=== PATIENT | female | born 1955 | race Caucasian/White ===

== ENCOUNTER → 2016-08-16 | Outpatient (REF) | payer OTHER ==
[2016-08-16 12:11] LABS: ALBUMIN 3.6 GM/DL (3.2-5.2); ALBUMIN/GLOBULIN RATIO 0.88 (1.00-1.93); ALKALINE PHOSPHATASE 80 U/L (45-117); ALT/SGPT 32 U/L (12-78); ANION GAP 5 MEQ/L (8-16); AST/SGOT 17 U/L (15-37); BILIRUBIN,TOTAL 0.8 MG/DL (0.2-1.0); BLOOD UREA NITROGEN 16 MG/DL (7-18); CALCIUM LEVEL 9.7 MG/DL (8.8-10.2); CARBON DIOXIDE LEVEL 31 MEQ/L (21-32); CHLORIDE LEVEL 104 MEQ/L (98-107); CREATININE FOR GFR 0.73 MG/DL (0.55-1.02); GLOMERULAR FILTRATION RATE > 60.0 (>45); GLUCOSE, FASTING 87 MG/DL (80-110); POTASSIUM SERUM 4.3 MEQ/L (3.5-5.1); SODIUM LEVEL 140 MEQ/L (136-145); TOTAL PROTEIN 7.7 GM/DL (6.4-8.2)
== END ==
LOC: M SFHCPLAZ 08:53
PROVIDERS: ATTEND Nurse Practitioner Family
DX: I10 Essential (primary) hypertension (principal); E55.9 Vitamin D deficiency, unspecified

== ENCOUNTER → 2016-08-29 | Outpatient (CLI) | payer OTHER ==
--- NOTE | 2016-08-29 13:51 | REP ---
PA and lateral chest: A comparison is 09/12/2010. The lung granado are clear. The cardiac size is normal The lucrecia, mediastinum, and bony thorax are unremarkable. Impression: Negative PA and lateral chest. There is no significant interval change. Signed by Dariel Francisco MD 08/29/2016 01:43 P
== END ==
LOC: M SMT 10:57
PROVIDERS: ATTEND Nurse Practitioner Family
DX: R06.02 Shortness of breath (principal); I10 Essential (primary) hypertension

== ENCOUNTER → 2017-01-15 | Outpatient (REF) | payer OTHER ==
[2017-01-15 11:46] LABS: MEAN CORPUSCULAR HEMOGLOBIN 30.9 pg (27.0-33.0); MEAN CORPUSCULAR HGB CONC 33.2 g/dl (32.0-36.5); RED CELL DISTRIBUTION WIDTH 12.9 % (11.5-14.5); WHITE BLOOD COUNT 7.9 K/mm3 (4.0-10.0)
[2017-01-15 12:09] LABS: ALBUMIN 3.3 GM/DL (3.2-5.2); ALBUMIN/GLOBULIN RATIO 0.83 (1.00-1.93); ALKALINE PHOSPHATASE 73 U/L (45-117); ALT/SGPT 38 U/L (12-78); ANION GAP 9 MEQ/L (8-16); AST/SGOT 16 U/L (15-37); BILIRUBIN,TOTAL 0.7 MG/DL (0.2-1.0); BLOOD UREA NITROGEN 11 MG/DL (7-18); CALCIUM LEVEL 8.7 MG/DL (8.8-10.2); CARBON DIOXIDE LEVEL 27 MEQ/L (21-32); CHLORIDE LEVEL 107 MEQ/L (98-107); CHOLESTEROL LEVEL 193 MG/DL (<200); CREATININE FOR GFR 0.72 MG/DL (0.55-1.02); GLOMERULAR FILTRATION RATE > 60.0 (>45); GLUCOSE, FASTING 91 MG/DL (80-110); POTASSIUM SERUM 4.1 MEQ/L (3.5-5.1); SODIUM LEVEL 143 MEQ/L (136-145); TOTAL PROTEIN 7.3 GM/DL (6.4-8.2); TRIGLYCERIDES LEVEL 121 MG/DL (<150)
== END ==
LOC: M LABDRAW1 09:40
PROVIDERS: ATTEND Nurse Practitioner Family
DX: M17.0 Bilateral primary osteoarthritis of knee (principal); I10 Essential (primary) hypertension; E78.2 Mixed hyperlipidemia; E55.9 Vitamin D deficiency, unspecified

== ENCOUNTER → 2017-02-01 | Outpatient (CLI) | payer OTHER ==
--- NOTE | 2017-02-01 08:54 | REPMRS ---
Patient History The patient states she had a clinical breast exam in 02/03 Patient is postmenopausal. Family history of colorectal cancer in sister at age 50 or over and prostate cancer in brother at age 50 or over. Digital Woman Screen Mammo: February 01, 2017 - Exam #: [id number] Bilateral CC and MLO view(s) were taken. Technologist: Sandra Bridges, Technologist Prior study comparison: January 03, 2016, digital woman screen mammo performed at [facility]. October 21, 2014, digital woman screen mammo performed at [facility]. October 28, 2013, digital woman screen mammo performed at [facility]. FINDINGS: There are scattered fibroglandular densities. There has been no change in the appearance of the mammogram from the prior studies. There is a mild amount of scattered fibroglandular density which is fairly symmetric. There is no interval development of dominant mass, architectural distortion, or clustered microcalcification suggestive of malignancy. ASSESSMENT: BI-RADS/ACR category 1 mammogram. Negative. Recommendation Routine screening mammogram in 1 year (for women over age 40). This mammogram was interpreted with the aid of an FDA-approved computer-aided dectection system. Electronically Signed By: Joe Maurer MD 02/01/17 0853
== END ==
LOC: M WHC 08:15
PROVIDERS: ATTEND Nurse Practitioner Family
DX: Z12.31 Encounter for screening mammogram for malignant neoplasm of breast (principal); Z78.0 Asymptomatic menopausal state; Z80.0 Family history of malignant neoplasm of digestive organs

== ENCOUNTER → 2017-07-25 | Outpatient (REF) | payer OTHER ==
[2017-07-25 13:11] LABS: ANION GAP 8 MEQ/L (8-16); BLOOD UREA NITROGEN 14 MG/DL (7-18); CALCIUM LEVEL 9.2 MG/DL (8.8-10.2); CARBON DIOXIDE LEVEL 30 MEQ/L (21-32); CHLORIDE LEVEL 103 MEQ/L (98-107); CREATININE FOR GFR 0.74 MG/DL (0.55-1.30); GLOMERULAR FILTRATION RATE > 60.0 (>45); GLUCOSE, FASTING 89 MG/DL (70-100); POTASSIUM SERUM 3.9 MEQ/L (3.5-5.1); SODIUM LEVEL 141 MEQ/L (136-145)
== END ==
LOC: M SFHCPLAZ 08:16
DX: I10 Essential (primary) hypertension (principal)
CPT/HCPCS: 80048

== ENCOUNTER → 2017-12-31 | Outpatient (REF) | payer OTHER | LOC: M LAB REF 13:52 | DX: J02.9 Acute pharyngitis, unspecified (principal) ==

== ENCOUNTER → 2018-02-04 | Outpatient (REF) | payer OTHER ==
[2018-02-06 15:01] LABS: HPV HYBRID CAPTURE II Negative (Negative)
== END ==
LOC: M SFHCPLAZ 11:09
DX: Z12.4 Encounter for screening for malignant neoplasm of cervix (principal)

== ENCOUNTER → 2018-03-10 | Outpatient (CLI) | payer OTHER | LOC: M WHC 08:45 | DX: Z12.31 Encounter for screening mammogram for malignant neoplasm of breast (principal) | CPT/HCPCS: 77067 ==

== ENCOUNTER → 2018-03-31 | Outpatient (REF) | payer OTHER ==
[2018-03-31 17:52] LABS: HEMATOCRIT 42.2 % (36.0-47.0); HEMOGLOBIN 13.4 g/dl (12.0-15.5); MEAN CORPUSCULAR HEMOGLOBIN 29.8 pg (27.0-33.0); MEAN CORPUSCULAR HGB CONC 31.8 g/dl (32.0-36.5); MEAN CORPUSCULAR VOLUME 93.8 fl (80.0-96.0); PLATELET COUNT, AUTOMATED 300 10^3/uL (150-450); RED CELL DISTRIBUTION WIDTH 13.5 % (11.5-14.5); WHITE BLOOD COUNT 9.1 10^3/uL (4.0-10.0)
[2018-03-31 18:03] LABS: ALBUMIN 3.7 GM/DL (3.2-5.2); ALBUMIN/GLOBULIN RATIO 0.97 (1.00-1.93); ALKALINE PHOSPHATASE 77 U/L (45-117); ALT/SGPT 41 U/L (12-78); ANION GAP 7 MEQ/L (8-16); AST/SGOT 24 U/L (7-37); BILIRUBIN,TOTAL 0.8 MG/DL (0.2-1.0); BLOOD UREA NITROGEN 15 MG/DL (7-18); CALCIUM LEVEL 9.4 MG/DL (8.8-10.2); CARBON DIOXIDE LEVEL 30 MEQ/L (21-32); CHLORIDE LEVEL 102 MEQ/L (98-107); CHOLESTEROL LEVEL 211 MG/DL (<200); CHOLESTEROL RISK RATIO 3.907 (<5); CREATININE FOR GFR 0.73 MG/DL (0.55-1.30); GLOMERULAR FILTRATION RATE > 60.0 (>45); GLUCOSE, FASTING 91 MG/DL (70-100); HDL CHOLESTEROL 54 MG/DL (>40); LDL CHOLESTEROL 138 MG/DL (<100); NON-HDL-C 157 MG/DL; SODIUM LEVEL 139 MEQ/L (136-145); TOTAL PROTEIN 7.5 GM/DL (6.4-8.2); TRIGLYCERIDES LEVEL 95 MG/DL (<150)
[2018-03-31 18:11] LABS: TOTAL 25(OH) VITAMIN D 65.1 NG/ML (30.0-100.0)
[2018-03-31 19:38] LABS: ERYTHROCYTE SEDIMENTATION RATE 41 mm/hr (0-30)
== END ==
LOC: M SFHCADAM 11:21
DX: M17.0 Bilateral primary osteoarthritis of knee (principal); I10 Essential (primary) hypertension; E78.2 Mixed hyperlipidemia; E55.9 Vitamin D deficiency, unspecified

== ENCOUNTER → 2019-03-19 | Outpatient (REF) | payer OTHER ==
[2019-03-19 11:22] LABS: ALBUMIN 3.3 GM/DL (3.2-5.2); ALT/SGPT 30 U/L (12-78); BILIRUBIN,TOTAL 0.8 MG/DL (0.2-1.0); BLOOD UREA NITROGEN 14 MG/DL (7-18); CARBON DIOXIDE LEVEL 29 MEQ/L (21-32); CHLORIDE LEVEL 104 MEQ/L (98-107); CHOLESTEROL LEVEL 193 MG/DL (<200); CHOLESTEROL RISK RATIO 3.509 (<5); CREATININE FOR GFR 0.74 MG/DL (0.55-1.30); GLOMERULAR FILTRATION RATE > 60.0 (>45); GLUCOSE, FASTING 84 MG/DL (70-100); HDL CHOLESTEROL 55 MG/DL (>40); LDL CHOLESTEROL 115 MG/DL (<100); NON-HDL-C 138 MG/DL; POTASSIUM SERUM 4.1 MEQ/L (3.5-5.1); SODIUM LEVEL 140 MEQ/L (136-145); TRIGLYCERIDES LEVEL 115 MG/DL (<150)
[2019-03-19 11:27] LABS: TOTAL 25(OH) VITAMIN D 52.6 NG/ML (30.0-100.0)
[2019-03-19 11:46] LABS: MALB URINE SIEMENS 5.6 MG/L; MAU/CREAT RATIO 4.7 MCG/MG (0.0-30.0)
== END ==
LOC: M SFHCPLAZ 10:10
PROVIDERS: ATTEND Nurse Practitioner Family
DX: I10 Essential (primary) hypertension (principal); E78.2 Mixed hyperlipidemia; E55.9 Vitamin D deficiency, unspecified

== ENCOUNTER → 2019-04-07 | Outpatient (CLI) | payer OTHER ==
--- NOTE | 2019-04-07 09:56 | REP ---
BILATERAL MAMMOGRAM WITH 3D TOMOSYNTHESIS: [facility] lifetime risk of breast cancer 6.5%. MLO and CC views of both breast performed with 3D tomosynthesis. Comparison 03/10/2018 as well as other prior exams. Mild scattered fibroglandular tissue is again noted. There is no change on the right. On the left, there is a well-circumscribed 5 mm nodule in the posterolateral aspect of the left breast, which is not seen on prior studies. I see no other evidence of mass or clustered microcalcifications bilaterally. IMPRESSION: BIRADS 0: BI-RADS/ACR category 0 mammogram, Incomplete: Need additional imaging evaluation and/or prior mammograms for comparison. There appears to be a new well-circumscribed 5 mm nodule in the posterolateral left breast. Recommend spot compression views and ultrasound to further evaluate. This mammogram was interpreted with the aid of an FDA-approved computer-aided detection system. A. Negative x-ray reports should not delay biopsy if a dominant or clinically suspicious mass is present. B. Four to eight percent of cancers are not identified by x-ray. C. Adenosis and dense breasts may obscure an underlying neoplasm. The patient states she/he had a clinical breast exam in February 2019. The patient letter being requested is M0.
== END ==
LOC: M WHC 08:23
PROVIDERS: ATTEND Nurse Practitioner Family
DX: Z12.31 Encounter for screening mammogram for malignant neoplasm of breast (principal); R92.8 Other abnormal and inconclusive findings on diagnostic imaging of breast

== ENCOUNTER → 2019-04-14 | Outpatient (CLI) | payer OTHER ==
[~2019-04-14] MED LIST: AZEL0.055 NARES; CALC600T66 PO; ECOT81TA5 PO; FLON1SPR; FLUT11IN INH; IBUP-1022 PO; MULTCAP PO; OPTI0.5D5 OP; PROAAER10 INH; ZEST1TAB PO
--- NOTE | 2019-04-14 13:51 | REP ---
DIAGNOSTIC MAMMOGRAM LEFT BREAST WITH LEFT BREAST ULTRASOUND: Multiple spot compression views of the left breast is performed and compared to recent mammogram of 04/07/2019. These confirm the presence of a smoothly marginated 5 mm nodule at about 3-o'clock position left breast. Real-time sonographic evaluation of the 3-o'clock position region left breast demonstrates a 4 mm cyst corresponding to the mammographic abnormality. This is benign. IMPRESSION: BIRADS 2: BI-RADS/ACR category 2 mammogram. Benign Findings. ACR 2 benign. The well-circumscribed 5 mm at 3 -o'clock position left breast corresponds to a simple cyst and is benign. Recommend followup mammogram in one year. Patient letter requested is M1. Electronically Signed by Dariel Persaud MD 04/14/2019 02:33 P
== END ==
LOC: M RAD 11:29
PROVIDERS: ATTEND Nurse Practitioner Family
DX: N60.02 Solitary cyst of left breast (principal)

== ENCOUNTER 2019-05-26 08:36 | Day surgery (SDC) | payer OTHER ==
[~2019-05-26] VITALS: Ht 160 cm; Wt 116.1 kg
[2019-05-26] MEDS ORDERED: LIDOCAINE 2% INJ 100 MG/5 ML SDV (FOR ANES.) As Ordered ONE (08:50)
[2019-05-26] MEDS ORDERED: PROPOFOL 200 MG/20 ML VIAL As Ordered ONE (08:50)
[2019-05-26] MEDS ORDERED: NS 1,000 ML IV ONE (09:30)
--- NOTE | 2019-05-26 10:28 | ROOR ---
Patient Name: Melanie Durant Procedure Date: 05/26/2019 9:53 AM Date of : 1955 Age: 63 Room: [facility] Gender: Female Note Status: Finalized Procedure: Colonoscopy Indications: Screening for colorectal malignant neoplasm Providers: Anselmo CHAUDHARI MD Referring MD: Yoana Muhammad NP Requesting Provider: Medicines: Monitored Anesthesia Care Complications: No immediate complications. Procedure: Pre-Anesthesia Assessment: - The heart rate, respiratory rate, oxygen saturations, blood pressure, adequacy of pulmonary ventilation, and response to care were monitored throughout the procedure. The Colonoscope was introduced through the anus and advanced to the terminal ileum, with identification of the appendiceal orifice and IC valve. The colonoscopy was performed without difficulty. The patient tolerated the procedure well. The quality of the bowel preparation was fair. Findings: The perianal and digital rectal examinations were normal. Seven sessile polyps were found in the sigmoid colon, hepatic flexure and cecum. The polyps were 3 to 7 mm in size. These polyps were removed with a cold snare. Resection and retrieval were complete. A 12 mm polyp was found in the proximal sigmoid colon. The polyp was sessile. The polyp was removed with a piecemeal technique using a cold snare. Resection and retrieval were complete. Multiple medium-mouthed diverticula were found in the sigmoid colon. Internal hemorrhoids were found during retroflexion. The hemorrhoids were medium-sized. Impression: - Preparation of the colon was fair. - Seven 3 to 7 mm polyps in the sigmoid colon, at the hepatic flexure and in the cecum, removed with a cold snare. Resected and retrieved. - One 12 mm polyp in the proximal sigmoid colon, removed piecemeal using a cold snare. Resected and retrieved. - Moderate diverticulosis in the sigmoid colon. - Internal hemorrhoids. Recommendation: - Repeat colonoscopy in 2 years because the bowel preparation was suboptimal. - Repeat colonoscopy in 2 years for surveillance of multiple polyps. Anselmo Chaudhari MD Anselmo CHAUDHARI MD 05/26/2019 10:27:48 AM Electronically signed by Anselmo CHAUDHARI MD Number of Addenda: 0 Note Initiated On: 05/26/2019 9:53 AM Estimated Blood Loss: Estimated blood loss: none.
[2019-05-26 10:50] VITALS: BP 144/78
== END 2019-05-26 11:00 | disposition home or self-care (01) ==
LOC: M OPP 08:36
PROVIDERS: ATTEND Internal Medicine Gastroenterology
DX: Z12.11 Encounter for screening for malignant neoplasm of colon (principal); Z80.0 Family history of malignant neoplasm of digestive organs; Z86.010 Personal history of colon polyps; K64.8 Other hemorrhoids; D12.5 Benign neoplasm of sigmoid colon; D12.3 Benign neoplasm of transverse colon; D12.0 Benign neoplasm of cecum; K57.30 Diverticulosis of large intestine without perforation or abscess without bleeding; Z79.82 Long term (current) use of aspirin; Z79.899 Other long term (current) drug therapy

== ENCOUNTER → 2020-01-11 | Outpatient (REF) | payer OTHER ==
[2020-01-11 13:28] LABS: ALBUMIN 3.4 GM/DL (3.2-5.2); ALT/SGPT 32 U/L (12-78); BILIRUBIN,TOTAL 0.6 MG/DL (0.2-1.0); BLOOD UREA NITROGEN 15 MG/DL (7-18); CALCIUM LEVEL 9.5 MG/DL (8.8-10.2); CARBON DIOXIDE LEVEL 32 MEQ/L (21-32); CHLORIDE LEVEL 103 MEQ/L (98-107); CHOLESTEROL LEVEL 207 MG/DL (<200); CREATININE FOR GFR 0.72 MG/DL (0.55-1.30); GLOMERULAR FILTRATION RATE > 60.0 (>45); GLUCOSE, FASTING 79 MG/DL (70-100); HDL CHOLESTEROL 46 MG/DL (>40); LDL CHOLESTEROL 136 MG/DL (<100); NON-HDL-C 161 MG/DL; SODIUM LEVEL 139 MEQ/L (136-145); TOTAL 25(OH) VITAMIN D 58.5 NG/ML (30.0-100.0); TOTAL PROTEIN 7.1 GM/DL (6.4-8.2); TRIGLYCERIDES LEVEL 125 MG/DL (<150)
[2020-01-11 14:07] LABS: CREATININE, URINE 56.2 MG/DL; MALB URINE SIEMENS < 5.0 MG/L; MAU/CREAT RATIO 8.8 MCG/MG (0.0-30.0)
== END ==
LOC: M LAB REF 03:30
PROVIDERS: ATTEND Nurse Practitioner Family
DX: I10 Essential (primary) hypertension (principal); E78.2 Mixed hyperlipidemia; E55.9 Vitamin D deficiency, unspecified

== ENCOUNTER → 2020-08-01 | Outpatient (REF) | payer OTHER ==
[2020-08-01 06:56] LABS: BLOOD UREA NITROGEN 15 MG/DL (7-18); CALCIUM LEVEL 8.5 MG/DL (8.8-10.2); CARBON DIOXIDE LEVEL 30 MEQ/L (21-32); CHLORIDE LEVEL 108 MEQ/L (98-107); CREATININE FOR GFR 0.72 MG/DL (0.55-1.30); GLOMERULAR FILTRATION RATE > 60.0 (>45); GLUCOSE, FASTING 116 MG/DL (70-100); POTASSIUM SERUM 4.2 MEQ/L (3.5-5.1); SODIUM LEVEL 142 MEQ/L (136-145)
== END ==
LOC: M LAB 04:50
PROVIDERS: ATTEND Nurse Practitioner Family
DX: I10 Essential (primary) hypertension (principal)

== ENCOUNTER → 2020-10-31 | Outpatient (CLI) | payer MEDICARE, OTHER ==
--- NOTE | 2020-10-31 16:38 | REPMRS ---
Patient History The patient states she had a clinical breast exam in September 2020. Family history of colorectal cancer at age 50 or over in sister, prostate cancer at age 50 or over in brother. No Hormone Replacement Therapy Tomosynthesis is performed. [facility] b[facility] Patient states no breast complaints today. Patient has signed MRS History Sheet. Digital Woman Screen Mammo: October 31, 2020 - Exam #: [id number] Bilateral CC and MLO view(s) were taken. Technologist: Radha Starkey Technologist Prior study comparison: April 14, 2019, left breast digital mammo diagnostic unilateral, performed at [facility]. April 07, 2019, bilateral digital woman screen mammo performed at [facility]. FINDINGS: There are scattered fibroglandular densities. There has been no change in the appearance of the mammogram from the prior studies. There is a mild amount of residual fibroglandular tissue which is fairly symmetric. There is no interval development of dominant mass, architectural distortion, or clustered microcalcification suggestive of malignancy. Assessment: BI-RADS/ACR category 1 mammogram. Negative Mammogram. Recommendation Routine screening mammogram in 1 year (for women over age 40). This mammogram was interpreted with the aid of an FDA-approved computer-aided dectection system. Electronically Signed By: Dariel Persaud MD 10/31/20 [id number]
== END ==
LOC: M WHC 13:12
PROVIDERS: ATTEND Nurse Practitioner Family
DX: Z12.31 Encounter for screening mammogram for malignant neoplasm of breast (principal); Z80.8 Family history of malignant neoplasm of other organs or systems; Z80.42 Family history of malignant neoplasm of prostate

== ENCOUNTER → 2021-01-19 | Outpatient (REF) | payer MEDICARE, OTHER ==
[2021-01-19 11:47] LABS: ALBUMIN 3.3 GM/DL (3.2-5.2); ALT/SGPT 60 U/L (12-78); BILIRUBIN,TOTAL 0.5 MG/DL (0.2-1.0); BLOOD UREA NITROGEN 12 MG/DL (7-18); CALCIUM LEVEL 9.2 MG/DL (8.8-10.2); CARBON DIOXIDE LEVEL 30 MEQ/L (21-32); CHLORIDE LEVEL 106 MEQ/L (98-107); CHOLESTEROL LEVEL 192 MG/DL (<200); CHOLESTEROL RISK RATIO 3.764 (<5); CREATININE FOR GFR 0.72 MG/DL (0.55-1.30); GLOMERULAR FILTRATION RATE > 60.0 (>45); GLUCOSE, FASTING 90 MG/DL (70-100); HDL CHOLESTEROL 51 MG/DL (>40); LDL CHOLESTEROL 110 MG/DL (<100); NON-HDL-C 141 MG/DL; POTASSIUM SERUM 4.1 MEQ/L (3.5-5.1); SODIUM LEVEL 141 MEQ/L (136-145); TOTAL PROTEIN 7.5 GM/DL (6.4-8.2); TRIGLYCERIDES LEVEL 155 MG/DL (<150)
[2021-01-19 11:54] LABS: TOTAL 25(OH) VITAMIN D 61.2 NG/ML (30.0-100.0)
[2021-01-19 11:57] LABS: MALB URINE SIEMENS 11.5 MG/L; MAU/CREAT RATIO 5.4 MCG/MG (0.0-30.0)
== END ==
LOC: M LAB REF 10:28
PROVIDERS: ATTEND Nurse Practitioner Family
DX: I10 Essential (primary) hypertension (principal); E78.2 Mixed hyperlipidemia; E55.9 Vitamin D deficiency, unspecified; Z79.899 Other long term (current) drug therapy; Z79.82 Long term (current) use of aspirin

== ENCOUNTER → 2021-03-31 | Outpatient (CLI) | payer MEDICARE, OTHER | LOC: M LABSMTC 12:10 | PROVIDERS: ATTEND Pediatrics | DX: Z11.52 Encounter for screening for COVID-19 (principal); Z20.822 Contact with and (suspected) exposure to COVID-19 | CPT/HCPCS: C9803; U0003 ==

== ENCOUNTER → 2022-02-01 | Outpatient (REF) | payer MEDICARE, OTHER ==
[2022-02-01 11:35] LABS: HEMOGLOBIN A1c 6.1 %
[2022-02-01 11:37] LABS: ALBUMIN 3.3 GM/DL (3.2-5.2); ALT/SGPT 36 U/L (12-78); BILIRUBIN,TOTAL 0.7 MG/DL (0.2-1.0); BLOOD UREA NITROGEN 12 MG/DL (7-18); CALCIUM LEVEL 9.4 MG/DL (8.8-10.2); CARBON DIOXIDE LEVEL 29 MEQ/L (21-32); CHLORIDE LEVEL 103 MEQ/L (98-107); CHOLESTEROL LEVEL 205 MG/DL (<200); CHOLESTEROL RISK RATIO 3.867 (<5); CREATININE FOR GFR 0.73 MG/DL (0.55-1.30); GLOMERULAR FILTRATION RATE > 60.0 (>45); GLUCOSE, FASTING 101 MG/DL (70-100); HDL CHOLESTEROL 53 MG/DL (>40); LDL CHOLESTEROL 124 MG/DL (<100); NON-HDL-C 152 MG/DL; POTASSIUM SERUM 4.3 MEQ/L (3.5-5.1); SODIUM LEVEL 137 MEQ/L (136-145); TOTAL PROTEIN 7.2 GM/DL (6.4-8.2); TRIGLYCERIDES LEVEL 141 MG/DL (<150)
[2022-02-01 12:14] LABS: TOTAL 25(OH) VITAMIN D 63.6 NG/ML (30.0-100.0)
== END ==
LOC: M LAB 09:36
PROVIDERS: ATTEND Nurse Practitioner Adult Health
DX: E78.2 Mixed hyperlipidemia (principal); I10 Essential (primary) hypertension; E55.9 Vitamin D deficiency, unspecified; Z83.3 Family history of diabetes mellitus; Z79.899 Other long term (current) drug therapy

== ENCOUNTER → 2022-03-11 | Outpatient (REF) | payer MEDICARE, OTHER ==
[2022-03-11 10:07] LABS: HEMATOCRIT 43.1 % (36.0-47.0); HEMOGLOBIN 13.8 g/dl (12.0-15.5); MEAN CORPUSCULAR HEMOGLOBIN 30.1 pg (27.0-33.0); MEAN CORPUSCULAR VOLUME 93.9 fl (80.0-96.0); PLATELET COUNT, AUTOMATED 294 10^3/uL (150-450); RED BLOOD COUNT 4.59 10^6/uL (4.00-5.40); WHITE BLOOD COUNT 9.5 10^3/uL (4.0-10.0)
== END ==
LOC: M LAB REF 09:46
PROVIDERS: ATTEND Physician Assistant Medical
DX: R19.5 Other fecal abnormalities (principal)

== ENCOUNTER → 2022-04-02 | Outpatient (CLI) | payer MEDICARE, OTHER ==
[~2022-04-02] MED LIST changes: +CALCCAP4 PO; +PROA1AER2 IN; +VITMTA PO
== END ==
LOC: M LABSMTC 11:32
PROVIDERS: ATTEND Anesthesiology
DX: Z01.812 Encounter for preprocedural laboratory examination (principal); Z11.52 Encounter for screening for COVID-19

== ENCOUNTER 2022-04-05 08:08 | Day surgery (SDC) | payer MEDICARE, OTHER ==
[~2022-04-05] VITALS: Ht 165.1 cm; Wt 122.9 kg
[~2022-04-05 08:08] MED LIST changes: +NS 1,000 ML IV ONE
[2022-04-05] MEDS ORDERED: LIDOCAINE 2% 100MG/5ML SDV (FOR ANES.) As Ordered ONE (09:50)
[2022-04-05] MEDS ORDERED: propofoL 200 MG/20 ML VIAL As Ordered ONE (09:50)
[2022-04-05 10:36] VITALS: BP 144/63
== END 2022-04-05 10:49 | disposition home or self-care (01) ==
LOC: M OPP 08:08
PROVIDERS: ATTEND Internal Medicine Gastroenterology
DX: D12.3 Benign neoplasm of transverse colon (principal); D12.2 Benign neoplasm of ascending colon; K63.5 Polyp of colon; K64.8 Other hemorrhoids; K57.30 Diverticulosis of large intestine without perforation or abscess without bleeding; Z86.010 Personal history of colon polyps; Z80.0 Family history of malignant neoplasm of digestive organs; R19.5 Other fecal abnormalities; Z79.1 Long term (current) use of non-steroidal anti-inflammatories (NSAID); Z79.51 Long term (current) use of inhaled steroids; Z79.82 Long term (current) use of aspirin; Z79.899 Other long term (current) drug therapy; I10 Essential (primary) hypertension; J45.909 Unspecified asthma, uncomplicated; M17.0 Bilateral primary osteoarthritis of knee; Z80.52 Family history of malignant neoplasm of bladder

== ENCOUNTER → 2022-07-28 | Outpatient (REF) | payer MEDICARE, OTHER ==
[~2022-07-28] MED LIST changes: -NS 1,000 ML IV ONE
[2022-07-28 10:24] LABS: ALBUMIN 3.1 G/DL (3.2-5.2); ALKALINE PHOSPHATASE 69 U/L (46-116); ALT/SGPT 34 U/L (7.0-40); AST/SGOT 19 U/L (<34); BILIRUBIN,TOTAL 0.6 MG/DL (0.3-1.2); BLOOD UREA NITROGEN 15 MG/DL (9-23); CALCIUM LEVEL 9.2 MG/DL (8.3-10.6); CARBON DIOXIDE LEVEL 30 MMOL/L (20-31); CHLORIDE LEVEL 106 MMOL/L (98-107); CHOLESTEROL LEVEL 183 MG/DL (<200); CHOLESTEROL RISK RATIO 3.92 (<5); CREATININE FOR GFR 0.74 MG/DL (0.55-1.30); GLOMERULAR FILTRATION RATE > 60.0 (>45); GLUCOSE, FASTING 98 MG/DL (74-106); HDL CHOLESTEROL 46.6 MG/DL (>40); NON-HDL-C 136.4 MG/DL; POTASSIUM SERUM 4.4 MMOL/L (3.5-5.1); SODIUM LEVEL 140 MMOL/L (136-145); TOTAL PROTEIN 6.5 G/DL (5.7-8.2); TRIGLYCERIDES LEVEL 97 MG/DL (<150)
[2022-07-28 10:25] LABS: THYROID STIMULATING HORMONE 1.538 uIU/ML (0.55-4.78); TOTAL 25(OH) VITAMIN D 76.6 NG/ML (20.0-100.0)
== END ==
LOC: M LAB REF 09:31
PROVIDERS: ATTEND Nurse Practitioner Adult Health
DX: Z13.29 Encounter for screening for other suspected endocrine disorder (principal); R73.9 Hyperglycemia, unspecified; E55.9 Vitamin D deficiency, unspecified; E78.2 Mixed hyperlipidemia; I10 Essential (primary) hypertension

== ENCOUNTER → 2023-03-27 | Outpatient (CLI) | payer MEDICARE, OTHER ==
[~2023-03-27] MED LIST changes: -FLUT11IN INH; +FLUT12AE6 INH
== END ==
LOC: M WHC 12:36
PROVIDERS: ATTEND Nurse Practitioner Adult Health
DX: Z12.31 Encounter for screening mammogram for malignant neoplasm of breast (principal)

== ENCOUNTER → 2023-05-01 | Outpatient (REF) | payer MEDICARE, OTHER ==
[~2023-05-01] MED LIST changes: +OPTI0.5D2 OP; -OPTI0.5D5 OP
[2023-05-01 08:30] LABS: HEMATOCRIT 41.7 % (36.0-47.0); HEMOGLOBIN 13.4 g/dl (12.0-15.5); MEAN CORPUSCULAR HEMOGLOBIN 30.5 pg (27.0-33.0); MEAN CORPUSCULAR HGB CONC 32.1 g/dl (32.0-36.5); MEAN CORPUSCULAR VOLUME 94.8 fl (80.0-96.0); PLATELET COUNT, AUTOMATED 278 10^3/uL (150-450); WHITE BLOOD COUNT 7.9 10^3/uL (4.0-10.0)
[2023-05-01 08:54] LABS: ALBUMIN 3.3 G/DL (3.2-5.2); ALKALINE PHOSPHATASE 68 U/L (46-116); ALT/SGPT 32 U/L (7.0-40); AST/SGOT 17 U/L (<34); BILIRUBIN,TOTAL 0.7 MG/DL (0.3-1.2); BLOOD UREA NITROGEN 15 MG/DL (9-23); CALCIUM LEVEL 9.2 MG/DL (8.3-10.6); CARBON DIOXIDE LEVEL 27 MMOL/L (20-31); CHLORIDE LEVEL 106 MMOL/L (98-107); CHOLESTEROL LEVEL 198 MG/DL (<200); CHOLESTEROL RISK RATIO 4.07 (<5); CREATININE FOR GFR 0.72 MG/DL (0.55-1.30); GLOMERULAR FILTRATION RATE > 60.0 (>45); GLUCOSE, FASTING 109 MG/DL (74-106); HDL CHOLESTEROL 48.6 MG/DL (>40); LDL CHOLESTEROL 123.6 MG/DL (<100); NON-HDL-C 149.4 MG/DL; POTASSIUM SERUM 4.1 MMOL/L (3.5-5.1); SODIUM LEVEL 139 MMOL/L (136-145); TOTAL PROTEIN 6.9 G/DL (5.7-8.2); TRIGLYCERIDES LEVEL 129 MG/DL (<150)
[2023-05-01 08:56] LABS: TOTAL 25(OH) VITAMIN D 67.2 NG/ML (20.0-100.0)
[2023-05-01 09:31] LABS: HEMOGLOBIN A1c 5.8 % (4.0-6.0)
== END ==
LOC: M LAB REF 03:13
PROVIDERS: ATTEND Nurse Practitioner Adult Health
DX: M17.0 Bilateral primary osteoarthritis of knee (principal); I10 Essential (primary) hypertension; E55.9 Vitamin D deficiency, unspecified; Z83.3 Family history of diabetes mellitus; E78.2 Mixed hyperlipidemia

== ENCOUNTER → 2023-11-03 | Outpatient (REF) | payer MEDICARE, OTHER ==
[~2023-11-03] MED LIST changes: -AZEL0.055 NARES; +AZEL1SPR4 NARES
[2023-11-03 08:55] LABS: HEMATOCRIT 40.6 % (36.0-47.0); HEMOGLOBIN 13.1 g/dl (12.0-15.5); MEAN CORPUSCULAR HEMOGLOBIN 30.6 pg (27.0-33.0); MEAN CORPUSCULAR HGB CONC 32.3 g/dl (32.0-36.5); MEAN CORPUSCULAR VOLUME 94.9 fl (80.0-96.0); PLATELET COUNT, AUTOMATED 267 10^3/uL (150-450); RED BLOOD COUNT 4.28 10^6/uL (4.00-5.40); WHITE BLOOD COUNT 8.4 10^3/uL (4.0-10.0)
[2023-11-03 09:17] LABS: HEMOGLOBIN A1c 5.9 % (4.0-6.0)
[2023-11-03 09:27] LABS: ALBUMIN 3.2 G/DL (3.2-5.2); ALKALINE PHOSPHATASE 71 U/L (46-116); ALT/SGPT 29 U/L (7.0-40); AST/SGOT 13 U/L (<34); BILIRUBIN,TOTAL 0.7 MG/DL (0.3-1.2); BLOOD UREA NITROGEN 11 MG/DL (9-23); CALCIUM LEVEL 9.3 MG/DL (8.3-10.6); CARBON DIOXIDE LEVEL 30 MMOL/L (20-31); CHLORIDE LEVEL 107 MMOL/L (98-107); CHOLESTEROL LEVEL 191 MG/DL (<200); CREATININE FOR GFR 0.75 MG/DL (0.55-1.30); GLOMERULAR FILTRATION RATE > 60.0 (>45); GLUCOSE, FASTING 104 MG/DL (74-106); HDL CHOLESTEROL 47.7 MG/DL (>40); LDL CHOLESTEROL 116.7 MG/DL (<100); NON-HDL-C 143.3 MG/DL; POTASSIUM SERUM 4.2 MMOL/L (3.5-5.1); SODIUM LEVEL 142 MMOL/L (136-145); TOTAL PROTEIN 6.8 G/DL (5.7-8.2); TRIGLYCERIDES LEVEL 133 MG/DL (<150)
[2023-11-03 09:30] LABS: TOTAL 25(OH) VITAMIN D 74.2 NG/ML (20.0-100.0)
== END ==
LOC: M LAB REF 03:04
PROVIDERS: ATTEND Nurse Practitioner Adult Health
DX: M17.0 Bilateral primary osteoarthritis of knee (principal); Z83.3 Family history of diabetes mellitus; E55.9 Vitamin D deficiency, unspecified; E78.2 Mixed hyperlipidemia; I10 Essential (primary) hypertension

== ENCOUNTER → 2024-06-05 | Outpatient (REF) | payer MEDICARE, OTHER ==
[2024-06-05 11:08] LABS: ALBUMIN 3.3 G/DL (3.2-5.2); ALKALINE PHOSPHATASE 67 U/L (35-104); ALT/SGPT 34 U/L (7.0-40); AST/SGOT 18 U/L (<34); BILIRUBIN,TOTAL 0.8 MG/DL (0.3-1.2); BLOOD UREA NITROGEN 16 MG/DL (9-23); CALCIUM LEVEL 9.6 MG/DL (8.3-10.6); CARBON DIOXIDE LEVEL 30 MMOL/L (20-31); CHLORIDE LEVEL 104 MMOL/L (98-107); CHOLESTEROL LEVEL 212 MG/DL (<200); CHOLESTEROL RISK RATIO 3.94 (<5); CREATININE FOR GFR 0.77 MG/DL (0.55-1.30); FREE T4 1.19 NG/DL (0.89-1.76); GLOMERULAR FILTRATION RATE > 60.0 (>45); GLUCOSE, FASTING 95 MG/DL (74-106); HDL CHOLESTEROL 53.8 MG/DL (>40); LDL CHOLESTEROL 131.4 MG/DL (<100); NON-HDL-C 158.2 MG/DL; POTASSIUM SERUM 4.4 MMOL/L (3.5-5.1); SODIUM LEVEL 141 MMOL/L (136-145); THYROID STIMULATING HORMONE 1.694 uIU/ML (0.55-4.78); TOTAL PROTEIN 7.5 G/DL (5.7-8.2); TRIGLYCERIDES LEVEL 134 MG/DL (<150)
[2024-06-05 11:11] LABS: TOTAL 25(OH) VITAMIN D 91.5 NG/ML (20.0-100.0)
[2024-06-05 12:14] LABS: HEMOGLOBIN A1c 5.9 % (4.0-6.0)
== END ==
LOC: M LAB REF 09:51
PROVIDERS: ATTEND Nurse Practitioner Adult Health
DX: I10 Essential (primary) hypertension (principal); Z72.3 Lack of physical exercise; Z83.3 Family history of diabetes mellitus; E78.2 Mixed hyperlipidemia; E55.9 Vitamin D deficiency, unspecified; Z79.899 Other long term (current) drug therapy

== ENCOUNTER 2025-01-06 10:05 | Day surgery (SDC) | payer MEDICARE, OTHER ==
[~2025-01-06] VITALS: Ht 160 cm; Wt 118.8 kg
[~2025-01-06 10:05] MED LIST changes: +CALC600C3 PO; +FLUT12AE2 INH; +LISI10TA24 PO; +MULTTAB61 PO; +OMEG-28 PO; +VITA100093 PO
[2025-01-06] MEDS ORDERED: LIDOCAINE 2% 100 MG/5 ML SDV (FOR ANES.) As Ordered ONE (11:13)
[2025-01-06 11:47] VITALS: TEMP 99.2
[2025-01-06 12:10] VITALS: BP 137/87; O2SAT 96
== END 2025-01-06 12:18 | disposition home or self-care (01) ==
LOC: M OPP 10:05
PROVIDERS: ATTEND Surgery
DX: K63.5 Polyp of colon (principal); K57.30 Diverticulosis of large intestine without perforation or abscess without bleeding; K64.8 Other hemorrhoids; Z86.0100 Personal history of colon polyps, unspecified; Z91.048 Other nonmedicinal substance allergy status; Z79.82 Long term (current) use of aspirin; Z79.51 Long term (current) use of inhaled steroids; Z79.899 Other long term (current) drug therapy; J45.909 Unspecified asthma, uncomplicated

== ENCOUNTER → 2025-01-07 | Outpatient (CLI) | payer MEDICARE, OTHER ==
[~2025-01-07] MED LIST changes: -IBUP-1022 PO; +IBUP600T42 PO
== END ==
LOC: M WHC 11:59
PROVIDERS: ATTEND Nurse Practitioner Adult Health
DX: Z12.31 Encounter for screening mammogram for malignant neoplasm of breast (principal); Z53.9 Procedure and treatment not carried out, unspecified reason

== ENCOUNTER → 2025-01-22 | Outpatient (CLI) | payer MEDICARE, OTHER | LOC: M WHC 08:29 | PROVIDERS: ATTEND Nurse Practitioner Adult Health | DX: Z12.31 Encounter for screening mammogram for malignant neoplasm of breast (principal) ==

== ENCOUNTER → 2025-03-08 | Outpatient (REF) | payer MEDICARE, OTHER ==
[2025-03-08 11:22] LABS: ALT/SGPT 28.0 U/L (7.0-40); AST/SGOT 19.0 U/L (<34); CALCIUM LEVEL 9.1 MG/DL (8.3-10.6); CARBON DIOXIDE LEVEL 30.0 MMOL/L (20-31); CHLORIDE LEVEL 102.0 MMOL/L (98-107); CHOLESTEROL LEVEL 199.0 MG/DL (<200); CHOLESTEROL RISK RATIO 4.07 (<5); CREATININE FOR GFR 0.79 MG/DL (0.55-1.30); GLOMERULAR FILTRATION RATE 80.9 (>45); LDL CHOLESTEROL 127.0 MG/DL (<100); NON-HDL-C 150.2 MG/DL; POTASSIUM SERUM 4.3 MMOL/L (3.5-5.1); SODIUM LEVEL 140.0 MMOL/L (136-145); TRIGLYCERIDES LEVEL 116.0 MG/DL (<150)
[2025-03-08 11:25] LABS: TOTAL 25(OH) VITAMIN D 71.5 NG/ML (20.0-100.0)
[2025-03-08 11:30] LABS: ESTIMATED AVERAGE GLUCOSE 126.0 MG/DL (60-110)
== END ==
LOC: M LAB REF 09:48
PROVIDERS: ATTEND Nurse Practitioner Adult Health
DX: E74.39 Other disorders of intestinal carbohydrate absorption (principal); E55.9 Vitamin D deficiency, unspecified; E78.2 Mixed hyperlipidemia; I10 Essential (primary) hypertension; Z79.899 Other long term (current) drug therapy